=== PATIENT | female | born 1955 | race Caucasian/White ===

== ENCOUNTER 2022-09-04 10:49 | Outpatient (REF) | payer MEDICARE, SELFPAY ==
[2022-09-04 19:57] LABS: Abs Immature Grans 0.01 10^3/uL (0.0-0.06); Absolute Basophil Count 0.03 10^3/uL (0.0-0.2); Absolute Eosinophil Count 0.09 10^3/uL (0.0-0.7); Absolute Lymphocyte Count 2.28 10^3/uL (1.2-3.4); Absolute Monocyte Count 0.38 10^3/uL (0.1-0.8); Absolute Neutrophil Count 2.21 10^3/uL (1.2-6.7); Basophils % 0.6; Eosinophils % 1.8; HCT 38.8 % (36.0-46.0); Immature Grans % 0.2; Lymphocytes % 45.6; MCH 34.5 pg (27.0-33.0); MCHC 33.5 % (32.0-36.0); MCV 103 fL (80-95); MPV 11.5 fL (8.0-11.0); Monocytes % 7.6; Neutrophils % 44.2; Platelet Count 251 10^3/uL (130-400); RBC 3.77 10^6/uL (3.93-5.22); RDW 11.9 % (11.7-14.6)
[2022-09-04 20:24] LABS: ALT 25 U/L (14-59); AST 20 U/L (15-37); Albumin 4.2 g/dL (3.4-5.0); Alkaline Phosphatase 86 U/L (46-116); Anion Gap 7.2 mmol/L (3-11); BUN 19 mg/dL (7-18); Bilirubin, Total 0.8 mg/dL (0.2-1.0); CO2 27.8 mmol/L (21.0-32.0); CREATININE 0.8 mg/dL (0.55-1.02); Calcium 9.1 mg/dL (8.5-10.1); Chloride 102 mmol/L (98-107); Estimated GFR 81.72 (mL/min/1.73m2); Glucose 96 mg/dL (74-106); Potassium 4.6 mmol/L (3.5-5.1); Sodium 137 mmol/L (136-145); TSH (W/Ref FT4) 0.95 uIU/mL (0.36-3.74); Total Protein 7.6 g/dL (6.4-8.2)
== END 2022-09-04 10:50 | disposition home or self-care (01) ==
LOC: NCHCN 10:49
PROVIDERS: Visit Provider Physician Assistant
DX: D75.89 Other specified diseases of blood and blood-forming organs (principal); E03.9 Hypothyroidism, unspecified; F41.9 Anxiety disorder, unspecified
CPT/HCPCS: 80053; 84443; 85025

== ENCOUNTER 2023-06-26 17:00 | Outpatient (REF) | payer MEDICARE, SELFPAY ==
[2023-06-26 19:09] LABS: Abs Immature Grans 0.02 10^3/uL (0.0-0.06); Absolute Basophil Count 0.02 10^3/uL (0.0-0.2); Absolute Eosinophil Count 0.06 10^3/uL (0.0-0.7); Absolute Lymphocyte Count 2.59 10^3/uL (1.2-3.4); Absolute Monocyte Count 0.45 10^3/uL (0.1-0.8); Absolute Neutrophil Count 2.68 10^3/uL (1.2-6.7); Basophils % 0.3 %; HCT 34.4 % (36.0-46.0); HGB 11.9 g/dL (11.2-15.7); Immature Grans % 0.3 %; Lymphocytes % 44.5 %; MCH 35.8 pg (27.0-33.0); MCHC 34.6 % (32.0-36.0); MCV 104 fL (80-95); MPV 10.7 fL (8.0-11.0); Monocytes % 7.7 %; Neutrophils % 46.2 %; Platelet Count 222 10^3/uL (130-400); RBC 3.32 10^6/uL (3.93-5.22); RDW 12.2 % (11.7-14.6); RDW-SD 46.1 fL; WBC 5.82 10^3/uL (4.4-10.8)
[2023-06-26 19:17] LABS: ALT 26 U/L (14-59); AST 22 U/L (15-37); Albumin 4.1 g/dL (3.4-5.0); Alkaline Phosphatase 89 U/L (46-116); Anion Gap 9.5 mmol/L (3-11); BUN 9 mg/dL (7-18); Bilirubin, Total 0.8 mg/dL (0.2-1.0); CO2 26.5 mmol/L (21.0-32.0); CREATININE 0.7 mg/dL (0.55-1.02); Calcium 8.9 mg/dL (8.5-10.1); Chloride 104 mmol/L (98-107); Estimated GFR 95.32 (mL/min/1.73m2); Glucose 94 mg/dL (74-106); Potassium 3.5 mmol/L (3.5-5.1); Sodium 140 mmol/L (136-145); Total Protein 7.6 g/dL (6.4-8.2)
== END 2023-06-26 17:01 | disposition home or self-care (01) ==
LOC: NCHCN 17:00
PROVIDERS: Visit Provider Physician Assistant
DX: R10.30 Lower abdominal pain, unspecified (principal)
CPT/HCPCS: 80053; 85025

== ENCOUNTER 2023-09-12 17:47 | Outpatient (REF) | payer MEDICARE, SELFPAY ==
[2023-09-12 20:24] LABS: Calculated LDL 110 mg/dL (<100); Cholesterol 213 mg/dL (<200); HDL Cholesterol 92 mg/dL (40-60); TSH (W/Ref FT4) 0.58 uIU/mL (0.36-3.74); Triglyceride 58 mg/dL (<150)
[2023-09-14 09:17] LABS: HIV-1/2 Ag & Ab Screen Negative (Negative)
[2023-09-15 10:58] LABS: Hepatitis C Ab w Rflx HCV PCR Negative (Negative)
== END 2023-09-12 17:48 | disposition home or self-care (01) ==
LOC: NCHCN 17:47
PROVIDERS: PCP Physician Assistant; Visit Provider Physician Assistant
DX: E03.9 Hypothyroidism, unspecified (principal); E78.2 Mixed hyperlipidemia; Z11.4 Encounter for screening for human immunodeficiency virus [HIV]; Z11.59 Encounter for screening for other viral diseases
CPT/HCPCS: 80061; 86803; 87389; 84443

== ENCOUNTER 2024-11-03 15:15 | Outpatient (REF) | payer MEDICARE, SELFPAY ==
[2024-11-03 21:28] LABS: ALT 20 U/L (14-59); AST 18 U/L (15-37); Albumin 4.3 g/dL (3.4-5.0); Alkaline Phosphatase 89 U/L (46-116); Anion Gap 7.0 mmol/L (3-11); BUN 18 mg/dL (7-18); Bilirubin, Total 0.7 mg/dL (0.2-1.0); CO2 30.0 mmol/L (21.0-32.0); Calcium 9.7 mg/dL (8.5-10.1); Chloride 101 mmol/L (98-107); Estimated GFR 80.71 (mL/min/1.73m2); Glucose 103 mg/dL (74-106); Potassium 4.6 mmol/L (3.5-5.1); Sodium 138 mmol/L (136-145); TSH (W/Ref FT4) 1.37 uIU/mL (0.36-3.74); Total Protein 7.7 g/dL (6.4-8.2)
== END 2024-11-03 15:16 | disposition home or self-care (01) ==
LOC: NCHCN 15:15
PROVIDERS: PCP Physician Assistant; Visit Provider Physician Assistant
DX: E03.9 Hypothyroidism, unspecified (principal)
CPT/HCPCS: 80053; 84443